=== PATIENT | female | born 1945 | race Caucasian/White ===

== ENCOUNTER 2019-12-19 15:09 | Inpatient (IN) | payer MEDICARE, BC ==
[~2019-12-19] VITALS: Ht 157.5 cm; Wt 71.2 kg
[2019-12-19 18:36] VITALS: BP 134/59
[2019-12-19] MEDS ORDERED: BISMUTH SUBSALICYLATE 262 MG PO PRN (19:30)
[2019-12-19] MEDS ORDERED: HYDROcodone/APAP 5/325MG 1 TAB TABLET PO PRN (19:30)
[2019-12-19] MEDS ORDERED: ALBUTEROL SULFATE 2.5 MG/3 ML NEBU. IH PRN (19:30)
[2019-12-19] MEDS ORDERED: ONDANSETRON ODT 4 MG TAB.RAPDIS PO PRN (19:30)
[2019-12-19] MEDS ORDERED: POTA10TA12 PO (19:59)
[2019-12-19] MEDS ORDERED: GABA-586 PO (19:59)
[2019-12-19] MEDS ORDERED: LEVO75TA5 PO (19:59)
[2019-12-19] MEDS ORDERED: HYDR-2155 PO (19:59)
[2019-12-19] MEDS ORDERED: LIDO700A21 TP (19:59)
[2019-12-19] MEDS ORDERED: CITA20TA9 PO (19:59)
[2019-12-19] MEDS ORDERED: CIME200T8 PO (19:59)
[2019-12-19] MEDS ORDERED: AMLO5TAB10 PO (19:59)
[2019-12-19] MEDS ORDERED: MERO1VIA24 IV (19:59)
[2019-12-19] MEDS ORDERED: ACET500T68 PO (19:59)
[2019-12-19] MEDS ORDERED: LOSA100T14 PO (19:59)
[2019-12-19] MEDS ORDERED: ONDA4TAB12 PO (19:59)
[2019-12-19] MEDS ORDERED: ALEN70TA6 PO (19:59)
[2019-12-19] MEDS ORDERED: FURO20TA3 PO (19:59)
[2019-12-19] MEDS ORDERED: CYCL5TAB PO (19:59)
[2019-12-19] MEDS ORDERED: DAPT350V IV (19:59)
[2019-12-19] MEDS ORDERED: BISM262T94 PO (19:59)
[2019-12-19] MEDS ORDERED: ALBU2.5V8 IH (19:59)
[2019-12-19] MEDS ORDERED: METO-239 PO (19:59)
[2019-12-19] MEDS ORDERED: ALPR0.254 PO (19:59)
[2019-12-19] MEDS ORDERED: CALC200T23 PO (19:59)
[2019-12-19] MEDS ORDERED: CHOL500062 PO (19:59)
[2019-12-19] MEDS ORDERED: CALCIUM CARBONATE 500 MG TAB.CHEW PO PRN (20:30)
[2019-12-19] MEDS ORDERED: ALBUTEROL SULFATE 2.5 MG/3 ML NEBU. NEB PRN (20:45)
[2019-12-19] MEDS: PATCH REMOVAL. MC SCH (21:00)
[2019-12-19] MEDS ORDERED: FAMOTIDINE 20 MG TABLET PO PRN (21:00)
[2019-12-19] MEDS: POTASSIUM CHLORIDE 10 MEQ TABLET.ER. PO SCH (21:14)
[2019-12-19] MEDS: GABAPENTIN 300 MG CAPSULE. PO SCH (21:15)
[2019-12-19] MEDS ORDERED: MEROPENEM 1 GM VIAL IV SCH (22:00)
[2019-12-19] MEDS: MEROPENEM 1 GM in IV NORMAL SALINE 100ML 100 ML IV SCH (22:44)
[2019-12-19] MEDS: ALPRAZolam 0.25 MG TABLET PO PRN (23:18)
[2019-12-19] MEDS: ACETAMINOPHEN 500 MG TABLET PO PRN (23:18)
[2019-12-20] MEDS: MEROPENEM 1 GM in IV NORMAL SALINE 100ML 100 ML IV SCH ×3 (06:00→21:30)
[2019-12-20] MEDS: ALENDRONATE SODIUM 35 MG TABLET PO SCH (06:00)
[2019-12-20 08:00] VITALS: BP 170/89
[2019-12-20] MEDS: METOPROLOL SUCC 24HR ER 25 MG TAB.ER.24H. PO SCH (08:00)
[2019-12-20] MEDS: LIDOCAINE (700MG/PATCH) PATCH. TP SCH (09:00)
[2019-12-20] MEDS: FUROSEMIDE 20 MG TABLET PO SCH (09:00)
[2019-12-20] MEDS: amLODIPine BESYLATE 5 MG TABLET PO SCH (09:00)
[2019-12-20] MEDS: POTASSIUM CHLORIDE 10 MEQ TABLET.ER. PO SCH ×2 (09:00→21:22)
[2019-12-20] MEDS ORDERED: NON FORMULARY ITEM (Daptomycin 350 MG) IV SCH (09:00)
[2019-12-20] MEDS: CITALOPRAM 20 MG TABLET. PO SCH (09:00)
[2019-12-20] MEDS: CHOLECALCIFEROL (VITAMIN D3) 1,000 UNIT TABLET PO SCH (12:00)
[2019-12-20] MEDS: LEVOTHYROXINE 75 MCG TABLET PO SCH (12:00)
[2019-12-20] MEDS: LOSARTAN 50 MG TABLET. PO SCH (12:00)
[2019-12-20] MEDS ORDERED: oxyCODONE IR 5 MG TABLET PO PRN ×2 (13:45)
[2019-12-20] MEDS: oxyCODONE IR 5 MG TABLET PO PRN ×2 (14:00→19:19)
[2019-12-20] MEDS ORDERED: ALTEPLASE 2 MG VIAL INT CAT ONE (14:00)
[2019-12-20 14:15] LABS: HEMATOCRIT 26.1 % (36.0-47.0); HEMOGLOBIN 8.1 g/dL (12.0-15.5); RED BLOOD COUNT 3.53 x10^6/uL (3.50-5.40); WHITE BLOOD COUNT 9.4 x10^3/uL (4.0-11.0)
[2019-12-20 14:33] LABS: CALCIUM 8.9 mg/dL (8.5-10.1); CREATININE 0.9 mg/dL (0.6-1.0); GFR 60.9; POTASSIUM 3.8 mmol/L (3.5-5.1)
[2019-12-20 14:39] LABS: ALBUMIN 2.9 g/dL (3.4-5.0); ALBUMIN/GLOBULIN RATIO 0.7 (1.0-1.7); TOTAL BILIRUBIN 0.2 mg/dL (0.2-1.0); TOTAL PROTEIN 6.8 g/dL (6.4-8.2)
--- NOTE | 2019-12-20 14:41 | HP ---
ADMIT DATE: 12/20/2019 HISTORY OF PRESENT ILLNESS: The patient his 74-year-old female patient who apparently underwent right total knee arthroplasty and developed dehiscence with deep infection and the knee replacement was originally done on 02/27/2019. The patient has continued drainage after that and the patient had incision and drainage done on 07/21/2019. At that time, nothing cultured out. She was treated with broad-coverage and the patient continued to have problems since October. The patient had explantation done at that time. 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 Explanation was done on 11/03/2019. The patient has been on daptomycin since then. The patient was seen at the [facility] and she still has a small area of incision, which was draining and therefore she was admitted to [facility] and she underwent spacer exchange, done on 12/15/2019. She had had methicillin-resistant Staphylococcus aureus grown from her culture in October and she was started on daptomycin and meropenem and had had a PICC line, was transferred to [facility] to continue antibiotic therapy, continue pain management, DVT prophylaxis and start the process of physical and occupational therapy. PAST MEDICAL HISTORY: Significant for hypertension, hyperlipidemia, atrial fibrillation, gastroesophageal reflux disease, colonoscopy with polypectomy. She has breast cancer. PAST SURGICAL HISTORY: Significant for right total knee arthroplasty with explantation and spacer placement and revision, colonoscopy with polypectomy, bilateral mastectomy, hysterectomy. FAMILY HISTORY: Noncontributory. SOCIAL HISTORY: She is and lives with her . She does not smoke, drink alcohol or use any recreational drugs. ALLERGIES: She is allergic to SULFA, ASPIRIN, CODEINE, DIGOXIN, ERYTHROMYCIN, LATEX, MEPERIDINE, OMEPRAZOLE, and PROCHLORPERAZINE. MEDICATIONS: She was transferred to [facility] to continue on following medications: Meropenem 1 gram IV q. 8 hourly, daptomycin 350 mg IV daily, albuterol sulfate 2 puffs 4 times a day, Flexeril 5 mg every 8 hours, metoprolol succinate 50 mg once a day, amlodipine besylate 5 mg daily, losartan potassium 100 mg once a day, hydrocodone/APAP 5/325 one tablet every 6 hours. She is on Tylenol 1000 mg 3 times a day as needed, gabapentin 300 mg at bedtime, citalopram hydrobromide 20 mg daily, alprazolam 0.25 mg twice a day, furosemide 20 mg once a day, calcium carbonate 200 mg as needed, bismuth subsalicylate for Kaopectate 262 mg every 2-4 hours, ondansetron 4 mg every 6-8 hours, cimetidine 200 mg as needed for heartburn, levothyroxine sodium 75 mcg once a day, Lidoderm patch applied topically daily, on for 12 hours and off for 12 hours, vitamin D 5000 units daily and alendronate sodium 70 mg once a week for osteoporosis. On questioning her, she continued to complain of severe pain in her right knee joint. Apparently, she was taking 5-10 mg every 4 hours at [facility]. When she was discharged, she was switched to hydrocodone every 6 hours. REVIEW OF SYSTEMS: She denied otherwise any chest pain, shortness of breath, orthopnea, paroxysmal nocturnal dyspnea. Denied any cough, phlegm or hemoptysis. PHYSICAL EXAMINATION: GENERAL: When I examined her, she looked well and was clearly in no apparent respiratory distress. No pallor, jaundice, cyanosis or thyromegaly. No jugular venous distention. No lower limb edema. VITAL SIGNS: Her heart rate was 78, blood pressure was 134/59, temperature was 98.2, respiratory rate was 16 and oxygen saturation was 96%. HEAD, EYES, EARS, NOSE AND THROAT: Showed normocephalic, atraumatic. NECK: Supple. HEART: Showed normal first and second heart sounds. No gallop or murmur. CHEST: Clear to auscultation. No crepitation or rhonchi. ABDOMEN: Distended, soft, nontender. No guarding or rigidity. No organomegaly. All hernial orifices intact. Bowel sounds normal. NEUROLOGIC: She was awake, alert, responding appropriately. All cranial nerves intact. EXTREMITIES: She moves extremities without difficulty. She apparently manages to walk with a walker. LABORATORY DATA: Still pending at the time of this dictation. ASSESSMENT: In summary, this is a 74-year-old female patient who originally underwent right total knee arthroplasty on 02/27/2019. Apparently, she continued to have drainage after that. The patient had incision and drainage done on 07/21/2019. At that time, nothing had cultured out. The patient was treated with broad-coverage and the patient continued to have problem since October. The patient had explantation done at that time and the culture had grown methicillin-resistant Staphylococcus aureus. Explantation was done on 11/03/2019. The patient has been on daptomycin since then. The patient was seen in the Infectious Disease Clinic and apparently has continued to have drainage. She was seen by Dr. Vann and underwent explantation on 12/15/2019. She was transferred to this facility to continue on IV daptomycin and meropenem. She has multitude of other medical problems including atrial fibrillation, hypertension, depression, osteoarthritis, osteoporosis, hypothyroidism, and cholelithiasis. PLAN: My plan is to continue with all her current medication and she is supposed to be on Coumadin. We will arrange to get all her labs done. I will check her INR and adjust Coumadin to maintain INR between 2-2.5. Meanwhile, we will continue with all other medication. I have increased her oxycodone to 5 mg 1-2 tablets every 4 hours as needed. COCO SEARS MD DR: FABIOLA/romario JOB#: [id number] / [id number]
[2019-12-20] MEDS: DAPTOmycin 350 MG in IV NORMAL SALINE 50ML 50 ML IV SCH (15:00)
[2019-12-20] MEDS ORDERED: WARFARIN 4 MG TABLET. PO ONE (16:00)
[2019-12-20] MEDS: PATCH REMOVAL. MC SCH (19:16)
[2019-12-20 19:29] VITALS: BP 153/87
[2019-12-20] MEDS: GABAPENTIN 300 MG CAPSULE. PO SCH (21:22)
[2019-12-20] MEDS: LACTOBACILLUS RHAMNOSUS GG 1 CAPSULE. PO SCH (21:22)
[2019-12-21] MEDS: oxyCODONE IR 5 MG TABLET PO PRN ×6 (00:09→21:01)
[2019-12-21] MEDS: CYCLOBENZAPRINE 10 MG TABLET. PO PRN (03:43)
[2019-12-21] MEDS: MEROPENEM 1 GM in IV NORMAL SALINE 100ML 100 ML IV SCH ×3 (06:00→21:00)
[2019-12-21 06:01] VITALS: BP 121/64
[2019-12-21] MEDS: LACTOBACILLUS RHAMNOSUS GG 1 CAPSULE. PO SCH ×2 (08:26→21:01)
[2019-12-21] MEDS: METOPROLOL SUCC 24HR ER 25 MG TAB.ER.24H. PO SCH (08:26)
[2019-12-21] MEDS: FUROSEMIDE 20 MG TABLET PO SCH (08:27)
[2019-12-21] MEDS: amLODIPine BESYLATE 5 MG TABLET PO SCH (08:27)
[2019-12-21] MEDS: POTASSIUM CHLORIDE 10 MEQ TABLET.ER. PO SCH ×2 (08:27→21:01)
[2019-12-21] MEDS: CITALOPRAM 20 MG TABLET. PO SCH (08:27)
[2019-12-21] MEDS: LIDOCAINE (700MG/PATCH) PATCH. TP SCH (09:00)
[2019-12-21] MEDS: LOSARTAN 50 MG TABLET. PO SCH (12:13)
[2019-12-21] MEDS: CHOLECALCIFEROL (VITAMIN D3) 1,000 UNIT TABLET PO SCH (12:13)
[2019-12-21] MEDS: LEVOTHYROXINE 75 MCG TABLET PO SCH (12:13)
[2019-12-21] MEDS: DAPTOmycin 350 MG in IV NORMAL SALINE 50ML 50 ML IV SCH (15:02)
[2019-12-21] MEDS ORDERED: WARFARIN 5 MG TABLET. PO ONE (16:15)
[2019-12-21] MEDS: PATCH REMOVAL. MC SCH (17:37)
[2019-12-21 17:57] VITALS: BP 125/74
[2019-12-21] MEDS: GABAPENTIN 300 MG CAPSULE. PO SCH (21:01)
[2019-12-22] MEDS: oxyCODONE IR 5 MG TABLET PO PRN ×6 (01:34→20:02)
[2019-12-22] MEDS: MEROPENEM 1 GM in IV NORMAL SALINE 100ML 100 ML IV SCH ×3 (05:48→21:58)
[2019-12-22 06:12] VITALS: BP 119/63
[2019-12-22] MEDS: LACTOBACILLUS RHAMNOSUS GG 1 CAPSULE. PO SCH ×2 (07:54→20:02)
[2019-12-22] MEDS: POTASSIUM CHLORIDE 10 MEQ TABLET.ER. PO SCH ×2 (07:54→20:02)
[2019-12-22] MEDS: amLODIPine BESYLATE 5 MG TABLET PO SCH (07:54)
[2019-12-22] MEDS: CITALOPRAM 20 MG TABLET. PO SCH (07:55)
[2019-12-22] MEDS: FUROSEMIDE 20 MG TABLET PO SCH (07:55)
[2019-12-22] MEDS: METOPROLOL SUCC 24HR ER 25 MG TAB.ER.24H. PO SCH (07:55)
[2019-12-22] MEDS: LIDOCAINE (700MG/PATCH) PATCH. TP SCH (08:48)
[2019-12-22 11:16] LABS: HEMATOCRIT 26.7 % (36.0-47.0)
[2019-12-22] MEDS: CHOLECALCIFEROL (VITAMIN D3) 1,000 UNIT TABLET PO SCH (11:54)
[2019-12-22] MEDS: LOSARTAN 50 MG TABLET. PO SCH (11:55)
[2019-12-22] MEDS: LEVOTHYROXINE 75 MCG TABLET PO SCH (11:55)
[2019-12-22] MEDS: DAPTOmycin 350 MG in IV NORMAL SALINE 50ML 50 ML IV SCH (14:35)
[2019-12-22] MEDS: PATCH REMOVAL. MC SCH (15:53)
[2019-12-22 18:20] VITALS: BP 112/72
[2019-12-22] MEDS: GABAPENTIN 300 MG CAPSULE. PO SCH (20:02)
[2019-12-23] MEDS: oxyCODONE IR 5 MG TABLET PO PRN ×6 (01:17→22:02)
[2019-12-23] MEDS: MEROPENEM 1 GM in IV NORMAL SALINE 100ML 100 ML IV SCH ×3 (05:20→22:02)
[2019-12-23 06:04] VITALS: BP 146/70
[2019-12-23] MEDS: METOPROLOL SUCC 24HR ER 25 MG TAB.ER.24H. PO SCH (08:34)
[2019-12-23] MEDS: POTASSIUM CHLORIDE 10 MEQ TABLET.ER. PO SCH ×2 (08:35→20:30)
[2019-12-23] MEDS: FUROSEMIDE 20 MG TABLET PO SCH (08:35)
[2019-12-23] MEDS: LIDOCAINE (700MG/PATCH) PATCH. TP SCH (08:35)
[2019-12-23] MEDS: amLODIPine BESYLATE 5 MG TABLET PO SCH (08:35)
[2019-12-23] MEDS: CITALOPRAM 20 MG TABLET. PO SCH (08:35)
[2019-12-23] MEDS: LACTOBACILLUS RHAMNOSUS GG 1 CAPSULE. PO SCH ×2 (08:35→20:30)
[2019-12-23] MEDS: LEVOTHYROXINE 75 MCG TABLET PO SCH (11:30)
[2019-12-23] MEDS: LOSARTAN 50 MG TABLET. PO SCH (11:30)
[2019-12-23] MEDS: CHOLECALCIFEROL (VITAMIN D3) 1,000 UNIT TABLET PO SCH (11:30)
[2019-12-23] MEDS: DAPTOmycin 350 MG in IV NORMAL SALINE 50ML 50 ML IV SCH (14:40)
[2019-12-23] MEDS ORDERED: WARFARIN 2.5 MG TABLET. PO ONE (16:00)
[2019-12-23 18:14] VITALS: BP 124/63
[2019-12-23] MEDS: CYCLOBENZAPRINE 10 MG TABLET. PO PRN (20:30)
[2019-12-23] MEDS: GABAPENTIN 300 MG CAPSULE. PO SCH (20:30)
[2019-12-23] MEDS: PATCH REMOVAL. MC SCH (20:30)
[2019-12-24] MEDS: oxyCODONE IR 5 MG TABLET PO PRN ×2 (02:02→06:14)
[2019-12-24] MEDS: MEROPENEM 1 GM in IV NORMAL SALINE 100ML 100 ML IV SCH ×3 (05:38→21:30)
[2019-12-24 07:34] VITALS: BP 139/74
[2019-12-24] MEDS: POTASSIUM CHLORIDE 10 MEQ TABLET.ER. PO SCH ×2 (08:09→20:06)
[2019-12-24] MEDS: LACTOBACILLUS RHAMNOSUS GG 1 CAPSULE. PO SCH ×2 (08:09→20:05)
[2019-12-24] MEDS: CITALOPRAM 20 MG TABLET. PO SCH (08:09)
[2019-12-24] MEDS: amLODIPine BESYLATE 5 MG TABLET PO SCH (08:10)
[2019-12-24] MEDS: METOPROLOL SUCC 24HR ER 25 MG TAB.ER.24H. PO SCH (08:10)
[2019-12-24] MEDS: FUROSEMIDE 20 MG TABLET PO SCH (08:11)
[2019-12-24] MEDS: LIDOCAINE (700MG/PATCH) PATCH. TP SCH (08:11)
[2019-12-24] MEDS ORDERED: OLANZapine 2.5 MG TABLET PO ONE (11:15)
[2019-12-24 13:20] VITALS: BP 121/72
[2019-12-24] MEDS: LEVOTHYROXINE 75 MCG TABLET PO SCH (13:21)
[2019-12-24] MEDS: LOSARTAN 50 MG TABLET. PO SCH (13:21)
[2019-12-24] MEDS: CHOLECALCIFEROL (VITAMIN D3) 1,000 UNIT TABLET PO SCH (13:21)
[2019-12-24] MEDS: ACETAMINOPHEN 500 MG TABLET PO PRN ×2 (15:09→21:48)
[2019-12-24] MEDS: DAPTOmycin 350 MG in IV NORMAL SALINE 50ML 50 ML IV SCH (15:10)
[2019-12-24] MEDS ORDERED: WARFARIN 3 MG TABLET. PO ONE (16:00)
[2019-12-24 18:08] VITALS: BP 136/82
[2019-12-24] MEDS: OLANZapine 2.5 MG TABLET PO PRN (20:06)
[2019-12-24] MEDS: CYCLOBENZAPRINE 10 MG TABLET. PO PRN (20:06)
[2019-12-24] MEDS: GABAPENTIN 300 MG CAPSULE. PO SCH (20:06)
[2019-12-24] MEDS: PATCH REMOVAL. MC SCH (21:00)
[2019-12-25] MEDS: MEROPENEM 1 GM in IV NORMAL SALINE 100ML 100 ML IV SCH ×3 (05:46→20:50)
[2019-12-25] MEDS: ACETAMINOPHEN 500 MG TABLET PO PRN (05:47)
[2019-12-25] MEDS ORDERED: ACETAMINOPHEN 500 MG TABLET PO PRN ×2 (07:15→18:00)
[2019-12-25 08:00] VITALS: BP 174/85
[2019-12-25] MEDS: CITALOPRAM 20 MG TABLET. PO SCH (08:29)
[2019-12-25] MEDS: LACTOBACILLUS RHAMNOSUS GG 1 CAPSULE. PO SCH ×2 (08:29→20:49)
[2019-12-25] MEDS: METOPROLOL SUCC 24HR ER 25 MG TAB.ER.24H. PO SCH (08:30)
[2019-12-25] MEDS: POTASSIUM CHLORIDE 10 MEQ TABLET.ER. PO SCH ×2 (08:30→20:49)
[2019-12-25] MEDS: amLODIPine BESYLATE 5 MG TABLET PO SCH (08:30)
[2019-12-25] MEDS: FUROSEMIDE 20 MG TABLET PO SCH (08:30)
[2019-12-25] MEDS: LIDOCAINE (700MG/PATCH) PATCH. TP SCH (08:31)
[2019-12-25] MEDS: CHOLECALCIFEROL (VITAMIN D3) 1,000 UNIT TABLET PO SCH (12:12)
[2019-12-25] MEDS: LOSARTAN 50 MG TABLET. PO SCH (12:13)
[2019-12-25] MEDS: LEVOTHYROXINE 75 MCG TABLET PO SCH (12:13)
[2019-12-25] MEDS: ALPRAZolam 0.25 MG TABLET PO PRN ×2 (12:20→23:00)
[2019-12-25] MEDS: DAPTOmycin 350 MG in IV NORMAL SALINE 50ML 50 ML IV SCH (14:06)
[2019-12-25 14:48] LABS: BACTERIA,URINE 0 /HPF (0-FEW); BILIRUBIN,URINE NEG (NEG); CLARITY,URINE CLEAR; COLOR,URINE STRAW; GLUCOSE,URINE NEG (NEG); NITRITE,URINE NEG (NEG); RBC,URINE RARE /HPF (0-2); SQUAMOUS EPITHELIAL CELL,UR FEW /LPF; UROBILINOGEN,URINE 0.2 mg/dL (0.2 mg/dL); WBC,URINE OCC /HPF (0-4)
[2019-12-25 14:49] LABS: HYALINE CASTS, URINE OCC /HPF
[2019-12-25] MEDS ORDERED: WARFARIN 4 MG TABLET. PO ONE (16:00)
[2019-12-25 18:15] VITALS: BP 146/83
[2019-12-25 18:33] LABS: HEMATOCRIT 27.5 % (36.0-47.0); HEMOGLOBIN 8.4 g/dL (12.0-15.5); RED BLOOD COUNT 3.74 x10^6/uL (3.50-5.40); RED CELL DISTRIBUTION WIDTH 16.2 % (11.5-14.5); WHITE BLOOD COUNT 10.1 x10^3/uL (4.0-11.0)
[2019-12-25 18:36] LABS: CALCIUM 8.8 mg/dL (8.5-10.1); CREATININE 0.9 mg/dL (0.6-1.0); GFR 60.9; POTASSIUM 3.3 mmol/L (3.5-5.1)
[2019-12-25] MEDS: ACETAMINOPHEN 325 MG TABLET PO PRN ×2 (18:39→23:00)
[2019-12-25 18:42] LABS: ALBUMIN 3.2 g/dL (3.4-5.0); ALBUMIN/GLOBULIN RATIO 0.8 (1.0-1.7); TOTAL BILIRUBIN 0.3 mg/dL (0.2-1.0); TOTAL PROTEIN 7.4 g/dL (6.4-8.2)
[2019-12-25] MEDS: GABAPENTIN 300 MG CAPSULE. PO SCH (20:49)
[2019-12-25] MEDS: PATCH REMOVAL. MC SCH (21:00)
--- NOTE | 2019-12-25 22:57 | PDOC ---
Exam Note: Arvind Note: Please also refer to the separate dictated note~for this date of service dictated separately.~Patient seen individually. Discussed the patient with Nursing staff reviewed the chart.~Reviewed interim history and current functioning. Reviewed vital signs,~Labs/ Radiology~and current medications noted below. Continue current treatment with the changes noted in the dictated addendum note Assessment: Vital Signs/I&O: Vital Signs Date Time Temp Pulse Resp B/P (MAP) Pulse Ox O2 Delivery O2 Flow Rate FiO2 12/25/19 18:15 98.5 89 146/83 (104) 98 Room Air 12/25/19 08:00 20 I & O 12/24/19 12/24/19 12/25/19 15:00 23:00 07:00 Intake Total 720 ml 610 ml 940 ml Balance 720 ml 610 ml 940 ml Labs: Laboratory Tests Test 12/25/19 06:30 12/25/19 11:45 12/25/19 17:15 Prothrombin Time 18.8 SEC (9.4-11.4) H Prothrombin Time INR 1.8 (0.9-1.1) H Urine Collection Type Unknown Urine Color Straw Urine Clarity Clear Urine pH 6.5 Urine Specific [place] 1.020 Urine Protein Neg (NEG-TRACE) Urine Glucose (UA) Neg mg/dL (NEG) Urine Ketones (Stick) Neg mg/dL (NEG) Urine Blood Trace (NEG) Urine Nitrite Neg (NEG) Urine Bilirubin Neg (NEG) Urine Urobilinogen Dipstick 0.2 mg/dL (0.2 mg/dL) Urine Leukocyte Esterase Neg (NEG) Urine RBC Rare /HPF (0-2) Urine WBC Occ /HPF (0-4) Urine Squamous Epithelial Cells Few /LPF Urine Bacteria 0 /HPF (0-FEW) Urine Hyaline Casts Occ /HPF Urine Mucus Slight /LPF White Blood Count 10.1 x10^3/uL (4.0-11.0) Red Blood Count 3.74 x10^6/uL (3.50-5.40) Hemoglobin 8.4 g/dL (12.0-15.5) L Hematocrit 27.5 % (36.0-47.0) L Mean Corpuscular Volume 74 fL (79-100) L Mean Corpuscular Hemoglobin 23 pg (25-35) L Mean Corpuscular Hemoglobin Concent 31 g/dL (31-37) Red Cell Distribution Width 16.2 % (11.5-14.5) H Platelet Count 369 x10^3/uL (140-400) Sodium Level 142 mmol/L (136-145) Potassium Level 3.3 mmol/L (3.5-5.1) L Chloride Level 105 mmol/L (98-107) Carbon Dioxide Level 24 mmol/L (21-32) Anion Gap 13 (6-14) Blood Urea Nitrogen 7 mg/dL (7-20) Creatinine 0.9 mg/dL (0.6-1.0) Estimated GFR (Cockcroft-Gault) 60.9 BUN/Creatinine Ratio 8 (6-20) Glucose Level 193 mg/dL (70-99) H Calcium Level 8.8 mg/dL (8.5-10.1) Total Bilirubin 0.3 mg/dL (0.2-1.0) Aspartate Amino Transferase (AST) 28 U/L (15-37) Alanine Aminotransferase (ALT) 27 U/L (14-59) Alkaline Phosphatase 95 U/L (46-116) Total Protein 7.4 g/dL (6.4-8.2) Albumin 3.2 g/dL (3.4-5.0) L Albumin/Globulin Ratio 0.8 (1.0-1.7) L Current Medications: Meds: Current Medications Medications (Trade) Dose Ordered Sig/Americo Route PRN Reason Start Time Stop Time Status Last Admin Dose Admin Warfarin Sodium (Coumadin) 4 mg 1X WARF ONCE PO 12/25/19 16:00 12/25/19 16:01 DC 12/25/19 15:41 Acetaminophen (Tylenol) 650 mg PRN Q4HRS PRN PO PAIN / TEMP 12/25/19 18:45 12/25/19 18:39 I have reviewed the current psychotropics carefully including drug interactions. Risk benefit ratio favors no change other than as noted in my dictated progress note. DAMIAN STRINGER MD Dec 25, 2019 22:57
[2019-12-26] MEDS: ACETAMINOPHEN 325 MG TABLET PO PRN ×5 (03:06→21:07)
[2019-12-26] MEDS: MEROPENEM 1 GM in IV NORMAL SALINE 100ML 100 ML IV SCH ×3 (05:48→21:04)
[2019-12-26 06:12] VITALS: BP 123/64
[2019-12-26 06:13] VITALS: BP 83/44
[2019-12-26 06:15] VITALS: BP 123/64
[2019-12-26] MEDS: METOPROLOL SUCC 24HR ER 25 MG TAB.ER.24H. PO SCH (08:19)
[2019-12-26] MEDS: CITALOPRAM 20 MG TABLET. PO SCH (08:20)
[2019-12-26] MEDS: amLODIPine BESYLATE 5 MG TABLET PO SCH (08:20)
[2019-12-26] MEDS: LACTOBACILLUS RHAMNOSUS GG 1 CAPSULE. PO SCH ×2 (08:20→21:04)
[2019-12-26] MEDS: POTASSIUM CHLORIDE 10 MEQ TABLET.ER. PO SCH ×2 (08:20→21:04)
[2019-12-26] MEDS: FUROSEMIDE 20 MG TABLET PO SCH (08:20)
[2019-12-26] MEDS: LIDOCAINE (700MG/PATCH) PATCH. TP SCH (08:21)
[2019-12-26] MEDS: CHOLECALCIFEROL (VITAMIN D3) 1,000 UNIT TABLET PO SCH (12:23)
[2019-12-26] MEDS: LEVOTHYROXINE 75 MCG TABLET PO SCH (12:24)
[2019-12-26] MEDS: LOSARTAN 50 MG TABLET. PO SCH (12:24)
[2019-12-26] MEDS: DAPTOmycin 350 MG in IV NORMAL SALINE 50ML 50 ML IV SCH (15:31)
[2019-12-26] MEDS ORDERED: WARFARIN 3 MG TABLET. PO ONE (16:00)
[2019-12-26 18:03] VITALS: BP 119/72
[2019-12-26] MEDS: PATCH REMOVAL. MC SCH (21:00)
[2019-12-26] MEDS: GABAPENTIN 300 MG CAPSULE. PO SCH (21:04)
--- NOTE | 2019-12-26 22:40 | PDOC ---
Exam Note: Arvind Note: Please also refer to the separate dictated note~for this date of service dictated separately.~ Discussed the patient with Nursing staff reviewed the chart.~Reviewed interim history and current functioning. Reviewed vital signs,~Labs/ Radiology~and current medications noted below. Continue current treatment with the changes noted in the dictated addendum note Assessment: Vital Signs/I&O: Vital Signs Date Time Temp Pulse Resp B/P (MAP) Pulse Ox O2 Delivery O2 Flow Rate FiO2 12/26/19 18:03 98.6 87 18 119/72 (88) 97 Room Air I & O 12/25/19 12/25/19 12/26/19 15:00 23:00 07:00 Intake Total 580 ml 510 ml 940 ml Balance 580 ml 510 ml 940 ml Labs: Laboratory Tests Test 12/26/19 10:07 Prothrombin Time 24.9 SEC (9.4-11.4) H Prothrombin Time INR 2.4 (0.9-1.1) H Current Medications: Meds: Current Medications Medications (Trade) Dose Ordered Sig/Americo Route PRN Reason Start Time Stop Time Status Last Admin Dose Admin Warfarin Sodium (Coumadin) 3 mg 1X WARF ONCE PO 12/26/19 16:00 12/26/19 16:01 DC 12/26/19 15:35 I have reviewed the current psychotropics carefully including drug interactions. Risk benefit ratio favors no change other than as noted in my dictated progress note. DAMIAN STRINGER MD Dec 26, 2019 22:39
[2019-12-26] MEDS: ALPRAZolam 0.25 MG TABLET PO PRN (23:05)
[2019-12-27] MEDS: ACETAMINOPHEN 325 MG TABLET PO PRN ×4 (03:37→23:15)
[2019-12-27] MEDS: MEROPENEM 1 GM in IV NORMAL SALINE 100ML 100 ML IV SCH ×3 (06:08→23:07)
[2019-12-27] MEDS: ALENDRONATE SODIUM 35 MG TABLET PO SCH (06:08)
[2019-12-27 06:28] VITALS: BP 162/82
[2019-12-27] MEDS: CITALOPRAM 20 MG TABLET. PO SCH (08:08)
[2019-12-27] MEDS: amLODIPine BESYLATE 5 MG TABLET PO SCH (08:08)
[2019-12-27] MEDS: METOPROLOL SUCC 24HR ER 25 MG TAB.ER.24H. PO SCH (08:09)
[2019-12-27] MEDS: LACTOBACILLUS RHAMNOSUS GG 1 CAPSULE. PO SCH ×2 (08:09→20:30)
[2019-12-27] MEDS: POTASSIUM CHLORIDE 10 MEQ TABLET.ER. PO SCH ×2 (08:09→20:30)
[2019-12-27] MEDS: FUROSEMIDE 20 MG TABLET PO SCH (08:09)
[2019-12-27] MEDS: LIDOCAINE (700MG/PATCH) PATCH. TP SCH (08:10)
[2019-12-27] MEDS: LOSARTAN 50 MG TABLET. PO SCH (11:31)
[2019-12-27] MEDS: LEVOTHYROXINE 75 MCG TABLET PO SCH (11:31)
[2019-12-27] MEDS: CHOLECALCIFEROL (VITAMIN D3) 1,000 UNIT TABLET PO SCH (11:31)
[2019-12-27] MEDS: ALPRAZolam 0.25 MG TABLET PO PRN (15:08)
[2019-12-27] MEDS: DAPTOmycin 350 MG in IV NORMAL SALINE 50ML 50 ML IV SCH (15:10)
[2019-12-27] MEDS: POTASSIUM CL 20MEQ-0.45% NACL 1,000 ML IV SCH (16:02)
[2019-12-27 18:43] VITALS: BP 158/90
[2019-12-27] MEDS: PATCH REMOVAL. MC SCH (20:29)
[2019-12-27] MEDS: GABAPENTIN 300 MG CAPSULE. PO SCH (20:30)
--- NOTE | 2019-12-27 22:33 | PDOC ---
Exam Note: Arvind Note: Please also refer to the separate dictated note~for this date of service dictated separately. Discussed the patient with Nursing staff reviewed the chart.~Reviewed interim history and current functioning. Reviewed vital signs,~Labs/ Radiology~and current medications noted below. Continue current treatment with the changes noted in the dictated addendum note Assessment: Vital Signs/I&O: Vital Signs Date Time Temp Pulse Resp B/P (MAP) Pulse Ox O2 Delivery O2 Flow Rate FiO2 12/27/19 18:43 98.1 80 18 158/90 (112) 97 Room Air I & O 12/26/19 12/26/19 12/27/19 15:00 23:00 07:00 Intake Total 600 ml 490 ml 400 ml Balance 600 ml 490 ml 400 ml Labs: Laboratory Tests Test 12/27/19 06:36 Prothrombin Time 36.0 SEC (9.4-11.4) H Prothrombin Time INR 3.5 (0.9-1.1) H Current Medications: Meds: Current Medications Medications (Trade) Dose Ordered Sig/Americo Route PRN Reason Start Time Stop Time Status Last Admin Dose Admin Warfarin Sodium (Coumadin - No Dose Today) 1 each 1X WARF ONCE MC 12/27/19 16:00 12/27/19 16:01 DC 12/27/19 16:06 Potassium Chloride/Sodium Chloride 1,000 ml @ 75 mls/hr [id number] IV 12/27/19 15:45 12/27/19 16:02 I have reviewed the current psychotropics carefully including drug interactions. Risk benefit ratio favors no change other than as noted in my dictated progress note. DAMIAN STRINGER MD Dec 27, 2019 22:33
[2019-12-28] MEDS: CYCLOBENZAPRINE 10 MG TABLET. PO PRN (02:38)
[2019-12-28] MEDS: OLANZapine 2.5 MG TABLET PO PRN (02:38)
--- NOTE | 2019-12-28 03:38 | CONS ---
DATE OF CONSULTATION: 12/25/2019 PSYCHIATRIC CONSULTATION This late entry 12/25/2019 covers elements not covered in my initial note. SUBJECTIVE: I met with the patient evening of 12/25/2019, discussed with nursing staff. IDENTIFYING DATA: The patient is a 74-year-old female seen in bed [facility] jail unit at [facility] for a psychiatric consult requested by Dr. Atkins because the patient is reportedly exhibiting confusion, paranoia and suspicion. She has been asking nonspecific questions. She complains of hamsters crawling on her bed. She is confused about the location, name and her date of . The patient has had increasing anxiety throughout the shift per nursing report. This was the information I obtained for the initial referral. Talking to the nurse taking care of the patient evening of 12/25/2019 before I met with her, nursing staff states patient has been fairly oriented with no active hallucinations for the past couple of hours. CHIEF COMPLAINT: "I think my mind was giving problems because of the pain medications. Those medications do that to me." HISTORY OF PRESENT ILLNESS: The patient is a 74-year-old female who underwent right total knee arthroplasty, developed dehiscence with deep infection and the knee replacement was originally done on 02/27/2019. She continued to have drainage after that and had incision and drainage on 07/21/2019. Later this was positive for MRSA. She was admitted to [facility] for Infectious Disease consult, had MRSA and treated for this. According to the patient, she was placed on opiates and she gives that is the reason further tactile and visual hallucinations and confusion she experienced. No prior clear psychiatric history. No history of bipolar disorder, suicidal or homicidal ideation. She has had some short-term memory deficits in the past, but nothing significant. PAST PSYCHIATRIC HISTORY: As above. MEDICAL HISTORY: In addition to above, positive for hypertension, hyperlipidemia, atrial fibrillation, GERD, colonoscopy with polypectomy and history of breast cancer. PAST SURGICAL HISTORY: Right total knee arthroplasty, colonoscopy with polypectomy, bilateral mastectomy, hysterectomy. FAMILY HISTORY: Noncontributory. SOCIAL HISTORY: She is and lives with her . No alcohol or drug abuse and she is a nonsmoker. ALLERGIES: SULFA, ASPIRIN, CODEINE, DIGOXIN, ERYTHROMYCIN, LATEX, MEPERIDINE, OMEPRAZOLE, PROCHLORPERAZINE. CURRENT PSYCHOTROPICS: Celexa 20 mg a day, Xanax 0.25 mg b.i.d. She is also on hydrocodone/APAP 5/325 q.6 hours and Lidoderm patch for pain. REVIEW OF SYSTEMS: Denied any chest pain, shortness of breath. No CV, , pulmonary, eye system symptoms on review. MENTAL STATUS EXAMINATION: As I met with her the evening of 12/25/2019, she is oriented to herself and situation. Speech is coherent, abstraction fair, computation somewhat impaired, language function intact. Short-term memory has some deficits. She denied any visual, tactile or auditory hallucinations. Attention span is somewhat short. She is slightly anxious, otherwise mood is euthymic. LABORATORY DATA: Reviewed. IMPRESSION: Major depressive disorder in partial remission; delirium due to general medical condition, possibly due to her opiates with delusions, partially resolved. Rest as above. RECOMMENDATIONS: From a psychiatric standpoint since the patient is doing better, I would minimize the use of her opiates, though she should get enough to address the pain. If she has a recurrence of psychotic symptoms with the opiates, she may need to be treated on low dose Risperdal, but for now we will avoid it. Dr. Atkins, thank you for the opportunity to participate in your patient's care. We will follow with you. DAMIAN STRINGER MD DR: RODO/romario JOB#: [id number] / [id number]
--- NOTE | 2019-12-28 04:07 | PN ---
DATE: 12/27/2019 SUBJECTIVE: The patient is sitting on the edge of the bed, very anxious, tearful. She thinks that she is dehydrated. She is unhappy that she cannot see her and there is no hairdresser here to take care of hair today, wondering how long she is going to be on antibiotics and why she cannot go home, so I sat down with her and we had a lengthy discussion with the nursing staff. I explained that given her infected knee that she has already been operated twice, she is getting 2 antibiotics, one of them being 3 times a day, she cannot go home with home health to get the antibiotic this way. I also explained that she has an appointment to see Dr. Lucas, the Infectious Disease specialist on next 01/02/2020, to decide whether she needs to continue with IV antibiotic or not. As far as isolation is something that is done nationwide to hopefully protect people at her age from the coronavirus and this is just to make sure that she is safe and not exposed to the virus and that hopefully once she makes her appointment with Dr. Lucas, he might decide to discontinue antibiotic or change them to oral route and she can go home, although there is something remained to be seen. PHYSICAL EXAMINATION: GENERAL: When I examined her this afternoon, she looked pale, but no jaundice, cyanosis or thyromegaly. No jugular venous distention. No limb edema. VITAL SIGNS: Her heart rate was 80, blood pressure was 162/82, temperature was 97.2, respiratory rate was 16, and oxygen saturation was 96%. HEAD, EYES, EARS, NOSE AND THROAT: Normocephalic, atraumatic. NECK: Supple. HEART: Showed normal first and second heart sounds. No gallop, rub or murmur. CHEST: Clear to auscultation. No crepitation or rhonchi. ABDOMEN: Distended, soft, nontender. NEUROLOGIC: She is awake, alert, responding appropriately. All cranial nerves are intact. She moves extremities without difficulty. She ambulates with a walker. LABORATORY DATA: Most recent lab work showed a white cell count of 10,000, hemoglobin 8.4, hematocrit 27.5, MCV 74 and platelet count 369,000. Her chemistry showed a serum sodium 142, potassium 3.3, chloride 105, bicarbonate 24, anion gap of 13, BUN 7, creatinine 0.9, estimated GFR was 61 mL per minute. Her glucose 193, calcium was 8.8. Total bilirubin, AST, ALT, alkaline phosphatase were normal. Total protein 7.4, albumin was 3.2. Her prothrombin time was 36. INR of 3.5. Urinalysis was essentially unremarkable. ASSESSMENT: In summary, this is a 74-year-old female patient who was basically admitted after she underwent an incision and drainage and exchange of the spacer on 12/15/2019. She was transferred to this facility to continue with IV daptomycin and meropenem. She has multiple other medical problems including atrial fibrillation, hypertension, depression, osteoarthritis, osteoporosis, hypothyroidism, and cholelithiasis. PLAN: My plan is to hold her Coumadin today. Repeat all her labs again tomorrow including her sed rate and CRP and she has an appointment to see Dr. Macias on Sunday12/29/2019 and Sunday01/02/2020. COCO SEARS MD DR: FABIOLA/romario JOB#: [id number] / [id number]
[2019-12-28] MEDS: ACETAMINOPHEN 325 MG TABLET PO PRN ×4 (06:10→21:02)
[2019-12-28] MEDS: MEROPENEM 1 GM in IV NORMAL SALINE 100ML 100 ML IV SCH ×3 (06:10→21:01)
[2019-12-28 06:24] VITALS: BP 158/79
[2019-12-28 07:23] LABS: HEMATOCRIT 26.7 % (36.0-47.0); HEMOGLOBIN 8.1 g/dL (12.0-15.5); RED BLOOD COUNT 3.62 x10^6/uL (3.50-5.40); RED CELL DISTRIBUTION WIDTH 15.8 % (11.5-14.5); WHITE BLOOD COUNT 8.6 x10^3/uL (4.0-11.0)
[2019-12-28 07:34] LABS: ALBUMIN 2.8 g/dL (3.4-5.0); ALBUMIN/GLOBULIN RATIO 0.8 (1.0-1.7); C REACTIVE PROTEIN 13.9 mg/L (0-3.3); CALCIUM 8.6 mg/dL (8.5-10.1); CREATININE 0.7 mg/dL (0.6-1.0); GFR 81.4; POTASSIUM 3.6 mmol/L (3.5-5.1); TOTAL BILIRUBIN 0.3 mg/dL (0.2-1.0); TOTAL PROTEIN 6.5 g/dL (6.4-8.2)
[2019-12-28] MEDS: POTASSIUM CHLORIDE 10 MEQ TABLET.ER. PO SCH ×2 (08:29→21:01)
[2019-12-28] MEDS: FUROSEMIDE 20 MG TABLET PO SCH (08:29)
[2019-12-28] MEDS: LACTOBACILLUS RHAMNOSUS GG 1 CAPSULE. PO SCH ×2 (08:31→21:02)
[2019-12-28] MEDS: METOPROLOL SUCC 24HR ER 25 MG TAB.ER.24H. PO SCH (08:31)
[2019-12-28] MEDS: amLODIPine BESYLATE 5 MG TABLET PO SCH (08:31)
[2019-12-28] MEDS: CITALOPRAM 20 MG TABLET. PO SCH (08:31)
[2019-12-28] MEDS: LIDOCAINE (700MG/PATCH) PATCH. TP SCH (08:32)
[2019-12-28] MEDS: POTASSIUM CL 20MEQ-0.45% NACL 1,000 ML IV SCH (10:23)
[2019-12-28] MEDS: LEVOTHYROXINE 75 MCG TABLET PO SCH (13:19)
[2019-12-28] MEDS: CHOLECALCIFEROL (VITAMIN D3) 1,000 UNIT TABLET PO SCH (13:19)
[2019-12-28] MEDS: LOSARTAN 50 MG TABLET. PO SCH (13:20)
[2019-12-28] MEDS: DAPTOmycin 350 MG in IV NORMAL SALINE 50ML 50 ML IV SCH (14:57)
[2019-12-28 18:04] VITALS: BP 177/79
[2019-12-28] MEDS: PATCH REMOVAL. MC SCH (21:00)
[2019-12-28] MEDS: GABAPENTIN 300 MG CAPSULE. PO SCH (21:02)
[2019-12-28] MEDS: ALPRAZolam 0.25 MG TABLET PO PRN (22:33)
[2019-12-29] MEDS: CYCLOBENZAPRINE 10 MG TABLET. PO PRN (01:02)
[2019-12-29] MEDS: ACETAMINOPHEN 325 MG TABLET PO PRN ×3 (01:03→21:20)
[2019-12-29] MEDS: MEROPENEM 1 GM in IV NORMAL SALINE 100ML 100 ML IV SCH ×3 (06:18→21:25)
[2019-12-29 06:43] VITALS: BP 163/98
[2019-12-29] MEDS: LACTOBACILLUS RHAMNOSUS GG 1 CAPSULE. PO SCH ×2 (07:57→21:20)
[2019-12-29] MEDS: LIDOCAINE (700MG/PATCH) PATCH. TP SCH (07:57)
[2019-12-29] MEDS: amLODIPine BESYLATE 5 MG TABLET PO SCH (07:57)
[2019-12-29] MEDS: POTASSIUM CHLORIDE 10 MEQ TABLET.ER. PO SCH ×2 (07:57→21:20)
[2019-12-29] MEDS: FUROSEMIDE 20 MG TABLET PO SCH (07:57)
[2019-12-29] MEDS: CITALOPRAM 20 MG TABLET. PO SCH (07:57)
[2019-12-29] MEDS: METOPROLOL SUCC 24HR ER 25 MG TAB.ER.24H. PO SCH (07:57)
[2019-12-29] MEDS: CHOLECALCIFEROL (VITAMIN D3) 1,000 UNIT TABLET PO SCH (12:00)
[2019-12-29] MEDS: LOSARTAN 50 MG TABLET. PO SCH (12:00)
[2019-12-29] MEDS: LEVOTHYROXINE 75 MCG TABLET PO SCH (12:00)
[2019-12-29] MEDS: DAPTOmycin 350 MG in IV NORMAL SALINE 50ML 50 ML IV SCH (15:04)
[2019-12-29] MEDS ORDERED: WARFARIN 2.5 MG TABLET. PO ONE (16:00)
[2019-12-29 18:33] VITALS: BP 152/82
[2019-12-29] MEDS: GABAPENTIN 300 MG CAPSULE. PO SCH (21:20)
[2019-12-29] MEDS: traMADol 50 MG TABLET PO PRN (21:21)
[2019-12-29] MEDS: PATCH REMOVAL. MC SCH (21:21)
[2019-12-30] MEDS: ACETAMINOPHEN 325 MG TABLET PO PRN ×3 (02:00→21:53)
[2019-12-30] MEDS: traMADol 50 MG TABLET PO PRN ×3 (02:01→21:51)
[2019-12-30] MEDS: MEROPENEM 1 GM in IV NORMAL SALINE 100ML 100 ML IV SCH ×3 (06:05→21:52)
[2019-12-30 06:22] VITALS: BP 157/86
[2019-12-30] MEDS: POTASSIUM CHLORIDE 10 MEQ TABLET.ER. PO SCH ×2 (07:53→21:52)
[2019-12-30] MEDS: LACTOBACILLUS RHAMNOSUS GG 1 CAPSULE. PO SCH ×2 (07:53→21:51)
[2019-12-30] MEDS: amLODIPine BESYLATE 5 MG TABLET PO SCH (07:54)
[2019-12-30] MEDS: CITALOPRAM 20 MG TABLET. PO SCH (07:54)
[2019-12-30] MEDS: FUROSEMIDE 20 MG TABLET PO SCH (07:54)
[2019-12-30] MEDS: METOPROLOL SUCC 24HR ER 25 MG TAB.ER.24H. PO SCH (07:54)
[2019-12-30] MEDS: LIDOCAINE (700MG/PATCH) PATCH. TP SCH (07:55)
[2019-12-30] MEDS: ALBUTEROL SULFATE 2.5 MG/3 ML NEBU. NEB SCH ×2 (11:21→20:57)
[2019-12-30] MEDS: CHOLECALCIFEROL (VITAMIN D3) 1,000 UNIT TABLET PO SCH (12:33)
[2019-12-30] MEDS: LEVOTHYROXINE 75 MCG TABLET PO SCH ×2 (12:36→12:45)
[2019-12-30] MEDS: LOSARTAN 50 MG TABLET. PO SCH (12:36)
[2019-12-30] MEDS: DAPTOmycin 350 MG in IV NORMAL SALINE 50ML 50 ML IV SCH (15:47)
[2019-12-30] MEDS ORDERED: WARFARIN 2.5 MG TABLET. PO ONE (16:00)
[2019-12-30 18:22] VITALS: BP 115/63
[2019-12-30] MEDS: ALPRAZolam 0.25 MG TABLET PO PRN (21:52)
[2019-12-30] MEDS: GABAPENTIN 300 MG CAPSULE. PO SCH (21:52)
[2019-12-30] MEDS: PATCH REMOVAL. MC SCH (21:53)
[2019-12-31] MEDS: ACETAMINOPHEN 325 MG TABLET PO PRN ×4 (03:40→21:38)
[2019-12-31] MEDS: traMADol 50 MG TABLET PO PRN ×4 (03:41→21:39)
[2019-12-31] MEDS: MEROPENEM 1 GM in IV NORMAL SALINE 100ML 100 ML IV SCH ×3 (05:53→22:05)
[2019-12-31] MEDS: LEVOTHYROXINE 75 MCG TABLET PO SCH (05:53)
[2019-12-31 06:10] VITALS: BP 142/75
[2019-12-31] MEDS: METOPROLOL SUCC 24HR ER 25 MG TAB.ER.24H. PO SCH (08:18)
[2019-12-31] MEDS: ALPRAZolam 0.25 MG TABLET PO PRN ×2 (08:18→21:38)
[2019-12-31] MEDS: POTASSIUM CHLORIDE 10 MEQ TABLET.ER. PO SCH ×2 (08:19→20:28)
[2019-12-31] MEDS: amLODIPine BESYLATE 5 MG TABLET PO SCH (08:19)
[2019-12-31] MEDS: CITALOPRAM 20 MG TABLET. PO SCH (08:19)
[2019-12-31] MEDS: LACTOBACILLUS RHAMNOSUS GG 1 CAPSULE. PO SCH ×2 (08:19→20:28)
[2019-12-31] MEDS: FUROSEMIDE 20 MG TABLET PO SCH (08:20)
[2019-12-31] MEDS: CHOLECALCIFEROL (VITAMIN D3) 1,000 UNIT TABLET PO SCH (11:35)
[2019-12-31] MEDS: LOSARTAN 50 MG TABLET. PO SCH (11:35)
[2019-12-31] MEDS: ALBUTEROL SULFATE 2.5 MG/3 ML NEBU. NEB SCH ×2 (11:50→20:39)
[2019-12-31] MEDS: DAPTOmycin 350 MG in IV NORMAL SALINE 50ML 50 ML IV SCH (15:25)
[2019-12-31] MEDS ORDERED: WARFARIN 2.5 MG TABLET. PO ONE (16:00)
[2019-12-31 17:44] VITALS: BP 152/76
[2019-12-31] MEDS: GABAPENTIN 300 MG CAPSULE. PO SCH (20:27)
[2019-12-31] MEDS: PATCH REMOVAL. MC SCH (20:28)
[2020-01-01] MEDS: CYCLOBENZAPRINE 10 MG TABLET. PO PRN (00:21)
[2020-01-01] MEDS: ACETAMINOPHEN 325 MG TABLET PO PRN ×3 (04:03→20:54)
[2020-01-01] MEDS: traMADol 50 MG TABLET PO PRN ×3 (04:03→20:55)
[2020-01-01] MEDS: MEROPENEM 1 GM in IV NORMAL SALINE 100ML 100 ML IV SCH (05:58)
[2020-01-01] MEDS: LEVOTHYROXINE 75 MCG TABLET PO SCH (06:01)
[2020-01-01 06:03] VITALS: BP 120/65
[2020-01-01] MEDS: FUROSEMIDE 20 MG TABLET PO SCH (08:59)
[2020-01-01] MEDS: POTASSIUM CHLORIDE 10 MEQ TABLET.ER. PO SCH ×2 (08:59→20:54)
[2020-01-01] MEDS: amLODIPine BESYLATE 5 MG TABLET PO SCH (08:59)
[2020-01-01] MEDS: METOPROLOL SUCC 24HR ER 25 MG TAB.ER.24H. PO SCH (09:00)
[2020-01-01] MEDS: ALBUTEROL SULFATE 2.5 MG/3 ML NEBU. NEB SCH ×2 (09:00→19:44)
[2020-01-01] MEDS: LACTOBACILLUS RHAMNOSUS GG 1 CAPSULE. PO SCH ×2 (09:00→20:54)
[2020-01-01] MEDS: CITALOPRAM 20 MG TABLET. PO SCH (09:00)
[2020-01-01] MEDS: CHOLECALCIFEROL (VITAMIN D3) 1,000 UNIT TABLET PO SCH (11:36)
[2020-01-01] MEDS: LOSARTAN 50 MG TABLET. PO SCH (11:37)
[2020-01-01] MEDS ORDERED: WARFARIN 1 MG TABLET. PO ONE (16:00)
[2020-01-01 18:20] VITALS: BP 150/91
[2020-01-01] MEDS: GABAPENTIN 300 MG CAPSULE. PO SCH (20:54)
[2020-01-01] MEDS: PATCH REMOVAL. MC SCH (20:56)
[2020-01-02] MEDS: ACETAMINOPHEN 325 MG TABLET PO PRN ×3 (01:07→14:17)
[2020-01-02] MEDS: ALPRAZolam 0.25 MG TABLET PO PRN (01:07)
[2020-01-02] MEDS: traMADol 50 MG TABLET PO PRN ×2 (02:45→03:48)
[2020-01-02] MEDS: CYCLOBENZAPRINE 10 MG TABLET. PO PRN (03:49)
[2020-01-02] MEDS: LEVOTHYROXINE 75 MCG TABLET PO SCH (05:03)
[2020-01-02 05:05] VITALS: BP 140/84
[2020-01-02] MEDS: ALBUTEROL SULFATE 2.5 MG/3 ML NEBU. NEB SCH ×2 (05:19→10:12)
[2020-01-02] MEDS: FUROSEMIDE 20 MG TABLET PO SCH (09:00)
[2020-01-02] MEDS: POTASSIUM CHLORIDE 10 MEQ TABLET.ER. PO SCH (09:01)
[2020-01-02] MEDS: amLODIPine BESYLATE 5 MG TABLET PO SCH (09:01)
[2020-01-02] MEDS: CITALOPRAM 20 MG TABLET. PO SCH (09:01)
[2020-01-02] MEDS: LACTOBACILLUS RHAMNOSUS GG 1 CAPSULE. PO SCH (09:01)
[2020-01-02] MEDS: METOPROLOL SUCC 24HR ER 25 MG TAB.ER.24H. PO SCH (09:01)
[2020-01-02 12:04] VITALS: BP 140/84
[2020-01-02] MEDS: LOSARTAN 50 MG TABLET. PO SCH (12:04)
[2020-01-02] MEDS: CHOLECALCIFEROL (VITAMIN D3) 1,000 UNIT TABLET PO SCH (12:05)
[2020-01-02] MEDS ORDERED: WARF2TAB PO (15:46)
--- NOTE | 2020-01-02 15:52 | DISCH ---
HOME HEALTH DISCHARGE/MEDS DISCHARGE INFORMATION: Discharge Date: Jan 02, 2020 Final Diagnosis: infected right knee prosthesis Condition on Discharge: Stable CODE STATUS: Code Status: Full HOME HEALTH: Face to Face: I certify this patient is under my care and that I, or a nurse practitioner or physician's advertising assistant manager working with me, had a face to face encounter that meets the physician face to face encounter requirements with this patient on 01/02/20 Medical Condition(s): DJD Physical Therapy For: Evalulation/Treatment Occupational Therapy For: Evaluation/Treatment POST DISCHARGE ORDERS: Activity Instructions for Disc: Resume previous activity DIET AFTER DISCHARGE: Regular CERTIFICATION STATEMENT: Certification Statement: Based on the above finding, I certify that this patient is confined to the home and needs intermittent nursing home care, physical therapy and/or speech therapy, or continues to need occupational therapy.~ This patient is under my care, and I have initiated the establishment of the plan of care.~ This patient will be followed by myself or a community physician who will periodically review the plan of care. DISCHARGE MEDICATIONS: Home Meds Active Scripts Warfarin Sodium (COUMADIN) 2 Mg Tablet, 1 TAB PO DAILY for dvt prophylaxis for 14 Days, #14 TAB Prov:COCO SEARS MD 01/02/20 Reported Medications Furosemide (FUROSEMIDE) 20 Mg Tablet, 1 TAB PO DAILY for HTN, #90 TAB 1 Refill 12/19/19 Potassium Chloride (KLOR-CON M10) 10 Meq Tab.er.prt, 1 TAB PO BID for LOW POTASSIUM for 30 Days, #60 TAB 0 Refills 12/19/19 Losartan Potassium (LOSARTAN POTASSIUM) 100 Mg Tablet, 100 MG PO NOON for HYPERTENSION, TAB 12/19/19 Levothyroxine Sodium (LEVOTHYROXINE SODIUM) 75 Mcg Tablet, 1 TAB PO DAILYWLUN for HYPOTHYRIODISM, #30 TAB 5 Refills 12/19/19 Cholecalciferol (Vitamin D3) (Vitamin D3) 5,000 Unit Tab.rapdis, 5000 UNIT PO DAILYWLUN for LOW VIT D LEVEL, TAB 12/19/19 Alprazolam (ALPRAZOLAM) 0.25 Mg Tablet, 1 TAB PO PRN BID PRN for ANXIETY / AGITATION, #90 TAB 12/19/19 Metoprolol Succinate (METOPROLOL SUCCINATE ( XL )) 25 Mg Tab.er.24h, 2 TAB PO DAILY08 for HTN, #30 TAB 5 Refills 12/19/19 Albuterol Sulfate (VENTOLIN HFA INHALER) 18 Gm Hfa.aer.ad, 2 PUFF IH QID PRN for FOR ASTHMA, INHALER 0 Refills 12/19/19 Citalopram Hydrobromide (CELEXA) 20 Mg Tablet, 1 TAB PO DAILY for DEPRESSION, #90 TAB 3 Refills 12/19/19 Alendronate Sodium (ALENDRONATE SODIUM) 70 Mg Tablet, 1 TAB PO WEEKLY for OSTEOPOROSIS, #4 TAB 3 Refills 12/19/19 Gabapentin (GABAPENTIN ) 300 Mg Capsule, 300 MG PO HS for NEUROGENIC PAIN, CAP 12/19/19 Amlodipine Besylate (AMLODIPINE BESYLATE) 5 Mg Tablet, 1 TAB PO DAILY for HTN, #30 TAB 5 Refills 12/19/19 Ondansetron (ONDANSETRON ODT) 4 Mg Tab.rapdis, 4 MG PO PRN Q6-8HRS PRN for NAUSEA, TAB 12/19/19 Cimetidine (ACID RADIAL ROUTER OPERATOR) 200 Mg Tablet, 200 MG PO PRN D for HEART BURN, TAB 12/19/19 Acetaminophen (ACETAMINOPHEN) 500 Mg Tablet, 2 TAB PO PRN TID PRN for pain or fever for 15 Days, #60 TAB 0 Refills 12/19/19 Cyclobenzaprine Hcl (CYCLOBENZAPRINE HCL) 5 Mg Tablet, 1 TAB PO PRN Q8HRS PRN for MUSCLE SPASMS, #30 TAB 12/19/19 Hydrocodone Bit/Acetaminophen (HYDROCODONE-APAP 5-325 ) 1 Each Tablet, 1 TAB PO PRN Q6HRS PRN for PAIN, TAB 0 Refills 12/19/19 Lidocaine (Lidocaine PATCH ) 1 Each Adh..patch, 1 EACH TP DAILY PRN for PAIN, PATCH REMOVE AFTER 12 HOURS 12/19/19 Bismuth Subsalicylate (Kaopectate) 262 Mg Tablet, 262 MG PO PRN Q2-4HRS PRN for INDIGESTION, TAB 12/19/19 Calcium Carbonate (CALCIUM CARBONATE) 200 Mg Tab.chew, 200 MG PO PRN Q30MIN PRN for GERD, TAB.CHEW 12/19/19 Discontinued Reported Medications Daptomycin (Daptomycin) 350 Mg Vial, 350 MG IV DAILY for INFECTED KNEE, EACH 12/19/19 Meropenem (MEROPENEM) 1 Gm Vial, 1 GM IV Q8HRS for KNEE INFECTION, EACH 12/19/19 COCO SEARS MD Jan 02, 2020 15:52
[2020-01-02] MEDS ORDERED: WARFARIN 2 MG TABLET. PO ONE (16:00)
--- NOTE | 2020-01-02 16:18 | DS ---
DATE OF DISCHARGE: 01/02/2020 HOSPITAL COURSE: The patient is a 74-year-old female patient who was transferred from [facility] where she apparently underwent a right total knee arthroplasty and developed dehiscence, deep infection, and the knee replacement was originally done on 02/27/2019. The patient had continued drainage after that and the patient had incision and drainage done on 07/21/2019. At that time, nothing cultured out. She was treated with broad-spectrum antibiotic and the patient continued to have problems until October. She had an explantation done at that time. 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 Explantation was done on 11/03/2019. The patient has been on daptomycin since then. The patient was seen at the [facility] and she still has some small areas of incision and drainage and was draining. Therefore, she was admitted to [facility] and she underwent spacer exchange that was done on 12/15/2019. She had had methicillin-resistant Staphylococcus aureus grown from her culture in October and she was started on daptomycin and meropenem and had had a PICC line, was transferred to [facility] hospital bed to continue with antibiotic therapy. Continue pain management, DVT prophylaxis and start the process of physical and occupational therapy. She was seen yesterday at the [facility] and they discontinued her IV antibiotic as well as the PICC line and she was discharged home with home health to continue with Coumadin as well as physical and occupational therapy. She will see Dr. Barba in 2 weeks' time. PHYSICAL EXAMINATION: GENERAL: When I saw her this afternoon, she looked well and was clearly in no apparent respiratory distress, pale, but no jaundice, cyanosis or thyromegaly. No jugular venous distention. No limb edema. VITAL SIGNS: Her heart rate was 87, blood pressure was 140/84, temperature was 98.2, respiratory rate was 18 and oxygen saturation was 99%. HEAD, EYES, EARS, NOSE AND THROAT: Showed she is normocephalic, atraumatic. NECK: Supple. CARDIAC: Normal first and second heart sounds. No gallop or murmur. CHEST: Clear to auscultation. No crepitation or rhonchi. ABDOMEN: Distended, soft, nontender. NEUROLOGIC: She was awake, alert, responding appropriately. All cranial nerves are intact. She moves extremities without difficulty. She ambulates with a walker. LABORATORY DATA: Her most recent prothrombin time was 21.7, INR of 2.1. Her most recent white cell count was 8600, hemoglobin 8.1, hematocrit 26.7, MCV 74, and platelet count of 366,000. Her most recent sedimentation rate was 40 mm per hour. Her chemistry showed a serum sodium of 141, potassium 3.6, chloride 108, bicarbonate 24, anion gap of 9, BUN 8, creatinine 0.7, estimated GFR was 81 mL per minute. Her glucose was 88, calcium was 8.6. Total bilirubin, AST, ALT, alkaline phosphatase were normal. Total protein was 6.5, albumin 2.8. Her urinalysis was essentially unremarkable. DISCHARGE MEDICATIONS: She was discharged home with home health to continue on warfarin 2 mg daily, Tylenol 1000 mg 3 times a day, albuterol sulfate 2 puffs 4 times a day, alendronate 70 mg every weekly for osteoporosis, alprazolam 0.25 mg twice a day as needed, amlodipine besylate 5 mg once a day, bismuth subsalicylate for Kaopectate 262 mg q. 2-4 hours as needed, calcium carbonate 200 mg every 30 minutes, cholecalciferol 5000 units daily at lunch, cimetidine 200 mg daily, citalopram hydrobromide for Celexa 20 mg daily, cyclobenzaprine 5 mg every 8 hours, furosemide 20 mg daily, gabapentin 300 mg at bedtime, hydrocodone/APAP 5/325 one tablet every 6 hours, levothyroxine sodium 75 mcg daily, lidocaine patch 1 patch topically on for 12 hours and off for 12 hours, losartan potassium 100 mg once a day, metoprolol succinate 25 mg daily, ondansetron 4 mg every 6-8 hours, and potassium chloride 10 mEq twice a day. We discontinued her daptomycin and meropenem. Her PICC line was removed. FINAL DISCHARGE DIAGNOSES: Infected right total knee arthroplasty, status post explantation and exchange of a spacer. She has completed antibiotic therapy, was seen yesterday by Infectious Disease who recommended to remove the PICC line and to follow with Dr. Barba in 2 weeks' time. Other medical problems include hypertension, hyperlipidemia, atrial fibrillation, gastroesophageal reflux disease and history of breast cancer. COCO SEARS MD DR: FABIOLA/romario JOB#: [id number] / [id number]
== END 2020-01-02 16:50 | disposition home health service (06) | DRG 556 ==
LOC: LND 18:17
PROVIDERS: ADMIT Internal Medicine; ATTEND Internal Medicine
DX: M25.561 Pain in right knee (principal); F05 Delirium due to known physiological condition; I10 Essential (primary) hypertension; E78.5 Hyperlipidemia, unspecified; I48.91 Unspecified atrial fibrillation; K21.9 Gastro-esophageal reflux disease without esophagitis; M19.90 Unspecified osteoarthritis, unspecified site; M81.0 Age-related osteoporosis without current pathological fracture; E03.9 Hypothyroidism, unspecified; E86.0 Dehydration; K80.20 Calculus of gallbladder without cholecystitis without obstruction; F32.4 Major depressive disorder, single episode, in partial remission; Z90.13 Acquired absence of bilateral breasts and nipples; Z86.14 Personal history of Methicillin resistant Staphylococcus aureus infection; Z85.3 Personal history of malignant neoplasm of breast; Z90.710 Acquired absence of both cervix and uterus; Z88.5 Allergy status to narcotic agent; Z88.2 Allergy status to sulfonamides; Z88.8 Allergy status to other drugs, medicaments and biological substances; Z91.040 Latex allergy status; Z96.651 Presence of right artificial knee joint
CPT/HCPCS: 36415; 80053; 81001; 82550; 85014; 85018; 85027; 85610; 85651; 86140; 94640; J0878; J2185; J2997; J7613; 97110; 97116; 97530; 97535

== ENCOUNTER → 2019-12-29 | Outpatient (CLI) | payer MEDICARE, BC ==
[~2019-12-29] MED LIST: ACET500T68 PO; ALBU2.5V8 IH; ALEN70TA6 PO; ALPR0.254 PO; AMLO5TAB10 PO; BISM262T94 PO; CALC200T23 PO; CHOL500062 PO; CIME200T8 PO; CITA20TA9 PO; CYCL5TAB PO; DAPT350V IV; FURO20TA3 PO; GABA-586 PO; HYDR-2155 PO; LEVO75TA5 PO; LIDO700A21 TP; LOSA100T14 PO; MERO1VIA24 IV; METO-239 PO; ONDA4TAB12 PO; POTA10TA12 PO
[2019-12-29 07:57] VITALS: BP 163/98
--- NOTE | 2019-12-29 11:00 | RAD ---
Two-view right knee study and AP standing view of both knees Clinical indications: Right knee pain. History of arthroplasty. FINDINGS: Right knee arthroplasty is evident with anterior midline metallic surgical skin gilbert. No prosthesis is seen within the patella. There is lateral subluxation of the patella. Alignment of the femoral and tibial prosthesis is otherwise normal. No acute fracture or lytic process is seen. AP standing view of the left knee is unremarkable. IMPRESSION: Right knee arthroplasty. Electronically signed by: Harlan Forrest MD (12/29/2019 10:57 AM) [facility]
--- NOTE | 2019-12-29 12:53 | NUR ---
Pharmacy Warfarin Dosing Note S:Pharmacy consulted to assist with anticoagulation therapy started with target INR: O:TIEN TAVERAS is a 74 year old F with LABS: Last INR: 2 Last HGB: 8.1 Last HCT: 27.6 Last PLT: 366 Last dose of NONE given on 12/27 at Previous Regimen: Vitamin K given: Drug Interaction Changes: Ongoing Drug Interactions: A:INR Within desired Range. Target Range for this patient is: P: Warfarin dose: 2.5MG Today at 1600 Bridge Therapy: Next INR due Pharmacy anticoagulation service will continue to follow. ISIDRO GILBERT [facility], 12/29/19 [id number]
--- NOTE | 2020-01-01 08:57 | NUR ---
Pharmacy Warfarin Dosing Note S:Pharmacy consulted to assist with anticoagulation therapy started with target INR:2-2.5 O:TIEN TAVERAS is a 74 year old F with DVT PROPHYLAXIS LABS: Last INR: 2.4 Last HGB: Last HCT: Last PLT: Last dose of 2.5MG given on 12/30 at 1600 Previous Regimen: Vitamin K given: Drug Interaction Changes: Ongoing Drug Interactions: A:INR Within desired Range. Target Range for this patient is: P: Warfarin dose: 1.5MG Today at 1600 Bridge Therapy: Next INR due 01/01 Pharmacy anticoagulation service will continue to follow. ISIDRO GILBERT [facility], 01/01/20 [id number] Addendum: 01/01/20 at 0900 by ISIDRO GILBERT RPH PHA DOSE GIVEN 12/30 @[id number]
== END | disposition home or self-care (01) ==
LOC: DXRAD 09:20
PROVIDERS: ATTEND Physician Assistant
DX: S83.011A Lateral subluxation of right patella, initial encounter (principal); Z96.651 Presence of right artificial knee joint; X58.XXXA Exposure to other specified factors, initial encounter; Y93.89 Activity, other specified; Y92.89 Other specified places as the place of occurrence of the external cause; Y99.8 Other external cause status
CPT/HCPCS: 73560; 73565